=== PATIENT | male | born 1980 | race Hispanic/Latino ===

== ENCOUNTER 2022-12-08 11:23 | Emergency (ER) | payer SELFPAY ==
[2022-12-08] VITALS (8 sets, daily range): BP systolic 117–143; BP diastolic 73–94
[~2022-12-08] VITALS: Ht 170.2 cm; Wt 99.0 kg
[~2022-12-08 11:23] MED LIST: AMOXICILLIN875 MG PO; AUGMENTIN875TAB PO; FLEXERIL PO; MECLIZINE25 MG PO; OMEPRAZOLE20 MG PO; PREVACID30 M2 PO; TORADOL PO; TRIAMCINOLON0.51 EX; VOSOL2 % OT
== END 2022-12-08 14:23 | disposition home or self-care (01) | DRG 310 ==
LOC: ED 11:23
DX: R00.2 Palpitations (principal); F41.9 Anxiety disorder, unspecified; F43.9 Reaction to severe stress, unspecified